=== PATIENT | male | born 1955 | race Caucasian/White ===

== ENCOUNTER 2023-05-13 19:35 | Inpatient (IN) | payer MEDICARE, SELFPAY ==
[2023-05-13 19:51] VITALS: BP 115/66; PULSE 92; RESP 18; TEMP 36.6; O2SAT 96; BMI 38.0
[2023-05-13 20:35] LABS: MANUAL DIFF FLAG NO
[2023-05-13 20:38] LABS: Basophils Absolute Auto 0.1 X10*3/uL (0.0-0.2); Basophils Percent Auto 0.8 % (0-2); Eosinophils Absolute Auto 0.1 X10*3/uL (0.0-0.4); Eosinophils Percent Auto 2.3 % (0-4); Hematocrit 41.1 % (42.0-52.0); Hemoglobin 13.7 g/dl (14.0-18.0); Imm Gran Abs Auto 0.02 X10*3/uL (0.00-0.03); Imm Gran Pct Auto 0.3 % (0.0-0.4); Lymphocytes Absolute Auto 1.4 X10*3/uL (1.2-4.9); Mean Corpuscular HGB Conc 33.3 g/dl (31.0-36.0); Mean Corpuscular Hemoglobin 29.5 pg (27.0-33.0); Mean Corpuscular Volume 88.6 fL (80.0-98.0); Mean Platelet Volume 9.1 fL (9.4-12.4); Monocytes Absolute Auto 0.8 X10*3/uL (0.1-1.2); Monocytes Percent Auto 12.2 % (2-11); Neutrophils Absolute Auto 3.8 x10*3/uL (2.0-8.3); Neutrophils Percent Auto 62.4 % (45-73); Platelet Count 241 X10*3/uL (160-400); Red Blood Count 4.64 X10*6/uL (4.60-5.80); Red Cell Distribution Width 12.2 % (11.0-16.0); White Blood Count 6.2 X10*3/uL (4.8-10.8)
[2023-05-13 20:46] LABS: Prothrombin Time 12.6 SEC (11.1-13.3)
[2023-05-13 20:54] LABS: Alanine Aminotransferase 28 U/L (0-40); Albumin Level 4.3 g/dL (3.5-5.0); Alkaline Phosphatase 70 U/L (39-117); Anion Gap 13 (12-20); Aspartate Amino Transferase 26 U/L (5-37); Bilirubin Direct 0.3 mg/dL (0.0-0.5); Bilirubin Total 0.8 mg/dL (0.0-1.0); Blood Urea Nitrogen 18 mg/dL (9-16); Calcium 9.6 mg/dL (8.4-10.2); Carbon Dioxide 31 mmol/L (22-29); Chloride 100 mmol/L (96-108); Creatinine Clr Calc Pharmacy 107.3; Estimated Glomerular Filt Rate > 60; Glucose Random 124 mg/dL (60-115); Lipase 22 U/L (8-78); Potassium 4.1 mmol/L (3.3-5.1); Sodium 140 mmol/L (135-145); Total Protein 6.7 g/dL (6.5-8.0)
[2023-05-13 22:15] VITALS: BP 121/77; PULSE 84; RESP 16; TEMP 36.6; O2SAT 98
--- NOTE | 2023-05-13 23:12 | MHC.EDTECH ---
Patient 2nd sets of blood culture ,drawn and sent to lab .
[2023-05-13 23:14] VITALS: BP 142/76; PULSE 86; RESP 16; TEMP 37; O2SAT 98
--- NOTE | 2023-05-13 23:23 | ED.GENADULT ---
HPI - General Adult General Chief complaint: Extremity Injury, Lower Stated complaint: lower leg pain inj Time Seen by Provider: 05/13/23 23:02 Source: patient Mode of arrival: ambulatory History of Present Illness HPI narrative: Pt is a 67yo male who presents to the ED with a cc of left leg swelling. Pt states he slipped getting out of a hot tub on 05/02 in [place] and landed on his knee. He developed swelling and a rug burn abrasion on the medial aspect of the patella. Pt went to the ED the next day and they ruled out any broken bones or dislocations with XR. Pt was using ibuprofen to manage the pain until he noticed the swelling, pain, and reddness spread distally to the foot. He went to the ED a second time last Sunday and they performed an US to assess for DVT. They found no evidence of DVT and the pt was discharged with Keflex. Despite taking the Keflex as prescribed, the pt notes minimal to no improvement. He flew back to [place] yesterday night and presented to the ED today. Pt denies any fever, chills, n/v, SOB, or cp. Related Data Home Medications Medication Instructions Recorded Confirmed No Known Home Meds 05/13/23 05/13/23 Allergies Allergy/AdvReac Type Severity Reaction Status Date / Time No Known Allergies Allergy Verified 05/13/23 20:02 Review of Systems Constitutional: Constitutional: Denies chills, Denies fever(s), Denies headache(s) and Denies weakness ENT: Denies dizziness and Denies headache(s) Cardiovascular: Cardiovascular: Denies chest pain, Reports leg edema (left calf, knee, and ankle) and Denies dyspnea Respiratory: Respiratory: Denies cough and Denies dyspnea Gastrointestinal: Gastrointestinal: Denies abdominal pain, Denies constipation, Denies diarrhea, Denies nausea and Denies vomiting Musculoskeletal: Musculoskeletal: Reports deformity (pressure like pain, erythema, and swelling of LLE) Integumentary/Breasts: Skin/Breast: Reports wounds (scabbed abrasion to medial left patella) Neurologic: Denies dizziness, Denies headache(s) and Denies weakness [facility] Social History Alcohol intake: never Smoked in Last 30 Days: No Use of substances other than those prescribed or required for medical reasons: No Advance Directives: Yes Advance Directives Information Provided: No Advance Directives on File: No Physical Exam ED Vital Signs: Vital Signs - 24 hr 05/13/23 19:51 05/13/23 22:15 05/13/23 23:14 Temperature 98 F 97.9 F 98.6 F Pulse Rate 92 84 86 Respiratory Rate 18 16 16 Blood Pressure 115/66 121/77 142/76 H Pulse Oximetry 96 98 98 Oxygen Delivery Method Room Air Room Air Room Air BMI result Body Mass Index 38.0 Const General: cooperative, comfortable, no acute distress, alert and awake Orientation/consciousness: patient oriented x3 HENMT Head: Yes normocephalic and Yes atraumatic Ears: hearing grossly normal bilaterally General nose exam: Normal external nose present Eyes General: appearance normal, both eyes and all related structures Eyelids: Yes eyelids normal Pupils: Equal, round and reactive pupils present Resp Effort & Inspection: normal respiratory effort and able to speak in complete sentences Auscultation: clear to auscultation bilaterally Cardio Rate: regular rate Rhythm: regular rhythm Heart sounds: S1 normal heart sound present and S2 normal heart sound present GI Inspection: Yes normal to inspection Palpation (GI): nontender Skin Other: Neuro General: patient oriented x3 Cranial nerves: Yes Equal, round and reactive pupils present Extrem General: Yes full ROM Right lower extremity: normal to inspection Left lower extremity: full ROM, edema Details: pitting and 3+, knee Details: swelling and abrasion (scabbed), lower leg Details: erythema Location: of the mid lower leg and of the distal lower leg, tenderness, localized swelling and pitting edema Details: 3+ and ankle Details: abnormal to inspection, tenderness, swelling, pitting edema Details: pitting and 3+, normal ROM and warmth Knee images: 1. scabbed abrasion Ankle/foot/toe images: 1. erythematous, swollen, indurated, warm to touch Medical Decision Making Medical Decision Making MDM Narrative: 67-year-old male presents for evaluation of redness, swelling and pain to the left lower extremity. He had ruled out for DVT, fracture. He has been on cephalexin for 5 days not and failed outpatient antibiotics. We will treat with vancomycin and Zosyn to cover both MRSA and Pseudomonas as he was in a hot tub when the injury happened. Will discuss with the hospitalist for admission for IV treatment of cellulitis due to failed outpatient antibiotics. He has full range of motion with flexion of the knee and ankle, there is very low suspicion for septic joint. Differential Diagnosis Differential Diagnoses: The differential diagnosis associated with the presentation includes (antibiotic failure, cellulitis, DVT, abscess, compartment syndrome) Admission/Observation Consideration of admission/observation: Escalation of care including admission/observation considered Lab Data MDM Lab Attestation statement: I reviewed the patient's lab results. No leukocytosis, very mild anemia. Patient's sodium potassium within normal limits, chloride of the normal limits, CO2 is just above normal at 31 which may be related to sleep apnea, BUN is just above normal 18 with normal creatinine of 1.0. 05/13/23 20:25 05/13/23 20:25 Labs: Lab Results 05/13/23 Range/Units 20:25 WBC 6.2 (4.8-10.8) X10*3/uL RBC 4.64 (4.60-5.80) X10*6/uL Hgb 13.7 L (14.0-18.0) g/dl Hct 41.1 L (42.0-52.0) % MCV 88.6 (80.0-98.0) fL MCH 29.5 (27.0-33.0) pg MCHC 33.3 (31.0-36.0) g/dl RDW 12.2 (11.0-16.0) % Plt Count 241 (160-400) X10*3/uL MPV 9.1 L (9.4-12.4) fL Immature Gran % (Auto) 0.3 (0.0-0.4) % Neut % (Auto) 62.4 (45-73) % Lymph % (Auto) 22.0 (20-40) % Shannon % (Auto) 12.2 H (2-11) % Eos % (Auto) 2.3 (0-4) % Baso % (Auto) 0.8 (0-2) % Lymph # (Auto) 1.4 (1.2-4.9) X10*3/uL Shannon # (Auto) 0.8 (0.1-1.2) X10*3/uL Eos # (Auto) 0.1 (0.0-0.4) X10*3/uL Baso # (Auto) 0.1 (0.0-0.2) X10*3/uL Abs Immat Gran (auto) 0.02 (0.00-0.03) X10*3/uL Absolute Neuts (auto) 3.8 (2.0-8.3) x10*3/uL Absolute Nucleated RBC 0.000 (0.0-0.012) X10*3/uL Nucleated RBC % (auto) 0.0 (0.0-0.2) /100WBC PT 12.6 (11.1-13.3) SEC INR 1.0 (0.9-1.1) Sodium 140 (135-145) mmol/L Potassium 4.1 (3.3-5.1) mmol/L Chloride 100 (96-108) mmol/L Carbon Dioxide 31 H (22-29) mmol/L Anion Gap 13 (12-20) BUN 18 H (9-16) mg/dL Creatinine 1.00 (0.5-1.4) mg/dL Estim Creat Clear Calc 107.3 Estimated GFR > 60 Random Glucose 124 H (60-115) mg/dL Calcium 9.6 (8.4-10.2) mg/dL Total Bilirubin 0.8 (0.0-1.0) mg/dL Direct Bilirubin 0.3 (0.0-0.5) mg/dL AST 26 (5-37) U/L ALT 28 (0-40) U/L Alkaline Phosphatase 70 (39-117) U/L Total Protein 6.7 (6.5-8.0) g/dL Albumin 4.3 (3.5-5.0) g/dL Lipase 22 (8-78) U/L Discharge Plan Discharge Clinical Impression: Cellulitis of left leg Patient Disposition: Admitted As Inpatient
[2023-05-13] MEDS: Piperacillin Sodium/Tazobactam 3.375 GM in 0.9 % Sodium Chloride 50 ML IV (23:57)
[2023-05-14] VITALS: BP 109/55; PULSE 77; RESP 16; TEMP 36.7; O2SAT 98
[2023-05-14] MEDS: 0.9 % Sodium Chloride 1,000 ML 999 ML IV
[2023-05-14] MEDS: vancomycin/NS 2,000 MG/500 ML PLAST..BAG 250 MG IV (00:31)
--- NOTE | 2023-05-14 00:32 | MHC.EDTECH ---
0000 rounding done ,vitals taken ,repeated lactic acid drawn and sent to lab , ,And Patient belongings list done ,Pt has some crackers and water for snack .
--- NOTE | 2023-05-14 01:45 | P.HPHOSP_ITS ---
History of Present Illness Date of Service: 05/14/23 Chief Complaint: Cellulitis This is a 67-year-old male who is otherwise healthy and does not take any medications for any medical problems comes into the hospital after fall on the 02 of May at a hotel cost him to scraped his knee and have severe pain, he was seen in an urgent care and was given ibuprofen, but returned on the with worsening swelling and redness, he was given antibiotics and said that he took antibiotics for 4 days but his leg continued to swell, become very painful, and have increasing redness that is now moving down his leg to his patino and ankles. He reports that he also had a DVT study on the which was negative Patient reports no fever, no chills, no abdominal pain nausea or vomiting, no diarrhea constipation, no urinary symptoms and no lower extremity edema On arrival to the ED patient hemodynamically stable Labs are significant for WBC count of 6.2, labs otherwise unremarkable Patient started on IV antibiotics and will be admitted for further management Review of Systems 2 Review of Systems: Yes all other systems are reviewed and are negative [facility] Medical History No pertinent past medical history Surgical History No pertinent past surgical history Alcohol intake: never Patient Tobacco Use Status: Never used Tobacco Smoked in Last 30 Days: No Use of substances other than those prescribed or required for medical reasons: No Advance Directives: Yes Advance Directives Information Provided: No Advance Directives on File: No Advance Directives Date on File: 05/14/23 Do you have thoughts of harming others: None Do you have a plan to hurt others: No Plan Recently lost weight without trying: No Nutrition Risks: No Nutritional Risk Meds Allergies Allergy/AdvReac Type Severity Reaction Status Date / Time No Known Allergies Allergy Verified 05/13/23 20:02 Active Medications: Current Medications Vancomycin HCl (Vancomycin/Ns) 2,000 mg in 500 mls @ 250 mls/hr IV ONCE ONE Stop: 05/14/23 02:04 Last Admin: 05/14/23 00:31 Dose: 250 mls/hr Pharmacy Consult (Consult Rx Vancomycin Dosing) 1 each MISCELLANE DAILY PRN PRN Reason: Consult order Home Medications Medication Instructions Recorded Confirmed Last Taken Type No Known Home Meds 05/13/23 05/13/23 Unknown History Physical Exam 2 Vital Signs and Narrative: Vital Signs: Last Vital Signs Temp 98.1 F 05/14/23 00:00 Pulse 77 05/14/23 00:00 Resp 16 05/14/23 00:00 BP 109/55 L 05/14/23 00:00 Pulse Ox 98 05/14/23 00:00 O2 Del Method Room Air 05/14/23 00:00 BMI result Body Mass Index 38.0 Const: General: cooperative and no acute distress O rientation/consciousness: patient oriented x3 Eyes: General: appearance normal, both eyes and all related structures P upils: Equal, round and reactive pupils present Resp: Effort & Inspection: normal respiratory effort Auscultation: clear to auscultation bilaterally Cardio: Rate: regular rate Rhythm: regular rhythm GI: Palpation (GI): Soft to palpation Auscultation: normal bowel sounds Skin: Other: Left lower extremity from knee down has 1 ulcer, significant erythema, warmth, redness, no drainage. Tender to touch Neuro: General: patient oriented x3 Cranial nerves: Yes Equal, round and reactive pupils present Cognition (Neuro): normal cognition Results Labs 05/13/23 20:25 05/13/23 20:25 Labs: Laboratory Results - last 24 hr 05/13/23 05/14/23 20:25 00:19 MCV 88.6 MCH 29.5 MCHC 33.3 RDW 12.2 Plt Count 241 MPV 9.1 L Immature Gran % (Auto) 0.3 Neut % (Auto) 62.4 Lymph % (Auto) 22.0 Hamlin % (Auto) 12.2 H Eos % (Auto) 2.3 Baso % (Auto) 0.8 Lymph # (Auto) 1.4 [place]lin # (Auto) 0.8 Eos # (Auto) 0.1 Baso # (Auto) 0.1 Abs Immat Gran (auto) 0.02 Absolute Neuts (auto) 3.8 Absolute Nucleated RBC 0.000 Nucleated RBC % (auto) 0.0 PT 12.6 INR 1.0 Anion Gap 13 Estim Creat Clear Calc 107.3 Estimated GFR > 60 Random Glucose 124 H Lactic Acid 1.0 Calcium 9.6 Total Bilirubin 0.8 Direct Bilirubin 0.3 AST 26 ALT 28 Alkaline Phosphatase 70 Total Protein 6.7 Albumin 4.3 Lipase 22 Assessment and Plan (1) Cellulitis of left leg: Status: Acute Plan 67-year-old male with no significant past medical history comes into the hospital with cellulitis of left lower extremity # left lower extremity cellulitis - failed outpatient therapy on Keflex - patient has worsening erythema, warmth, edema tenderness - no leukocytosis, afebrile - given failed outpatient therapy with p.o. antibiotics, patient will be started on IV antibiotics - follow cultures DVT prophylaxis: Lovenox Given patient's need for IV antibiotics as he failed outpatient therapy patient require minimum 2 nights inpatient hospital stay for further management and monitoring Quality Stroke Does the patient have a stroke diagnosis?: No VTE Prior VTE?: No VTE Risk Level:: Medical - moderate - high VTE Device Contraindication: Treatment Not Indicated VTE Drug Contraindication: N/A - Med Ordered
--- NOTE | 2023-05-14 02:00 | PC.NURSE ---
Pt A&Ox4, reports increasing pain with movement/pressure to LLL after falling at hotel on 05/02 in [place]. Bruising noted to back of left upper leg, Pt states that is probably from my leg brace I was wearing . Left foot swelling noted, and chin noted to be discolored, red and warm to touch. IV line place. Pt ambulated independently to with steady gait.
[2023-05-14 02:17] VITALS: BP 112/41; PULSE 82; RESP 16; TEMP 36.7; O2SAT 98
--- NOTE | 2023-05-14 02:24 | PC.NURSE ---
Report given to Cailin, Pt will be transported to room 361 by filling technician. Pt aware of plan.
[2023-05-14 02:51] VITALS: BMI 37.8
[2023-05-14 02:53] VITALS: BP 128/82; PULSE 84; RESP 18; TEMP 36.6; O2SAT 97
[2023-05-14] MEDS: ceFAZolin Sodium/Dextrose,Iso 2 GM/50 ML PIGGYBACK IV ×3 (03:27→22:11)
[2023-05-14 06:05] LABS: MANUAL DIFF FLAG NO
[2023-05-14 06:25] LABS: Anion Gap 12 (12-20); Blood Urea Nitrogen 17 mg/dL (9-16); Calcium 8.9 mg/dL (8.4-10.2); Carbon Dioxide 25 mmol/L (22-29); Chloride 106 mmol/L (96-108); Creatinine Clr Calc Pharmacy 118.8; Estimated Glomerular Filt Rate > 60; Glucose Random 109 mg/dL (60-115); Sodium 139 mmol/L (135-145)
[2023-05-14 06:27] LABS: Basophils Percent Auto 0.7 % (0-2); Eosinophils Absolute Auto 0.2 X10*3/uL (0.0-0.4); Eosinophils Percent Auto 2.9 % (0-4); Imm Gran Abs Auto 0.03 X10*3/uL (0.00-0.03); Imm Gran Pct Auto 0.5 % (0.0-0.4); Lymphocytes Absolute Auto 1.7 X10*3/uL (1.2-4.9); Lymphocytes Percent Auto 27.4 % (20-40); Mean Corpuscular HGB Conc 33.3 g/dl (31.0-36.0); Mean Corpuscular Hemoglobin 29.6 pg (27.0-33.0); Mean Corpuscular Volume 88.8 fL (80.0-98.0); Mean Platelet Volume 9.3 fL (9.4-12.4); Monocytes Absolute Auto 0.9 X10*3/uL (0.1-1.2); Monocytes Percent Auto 15.2 % (2-11); Neutrophils Absolute Auto 3.3 x10*3/uL (2.0-8.3); Neutrophils Percent Auto 53.3 % (45-73); Platelet Count 224 X10*3/uL (160-400); Red Blood Count 4.39 X10*6/uL (4.60-5.80); Red Cell Distribution Width 12.3 % (11.0-16.0); White Blood Count 6.1 X10*3/uL (4.8-10.8)
--- NOTE | 2023-05-14 07:09 | PHA.PROG ---
Admission Date/Time: May 14, 2023 01:44 Indication: Skin Weight in k.5 kg Adjusted body weight in Kg: [place] body weight in Kg: Obesity Dosing Indication % IBW: 62% over IBW Serum Creatinine - Last 168 Hours 05/13/23 05/14/23 20:25 05:57 Creatinine 1.00 0.90 Estimated CrCl and GFR - Last 168 Hours 05/13/23 05/14/23 20:25 05:57 Estim Creat Clear Calc 107.3 118.8 Estimated GFR > 60 > 60 Vancomycin Loading Dose: 2000mg x 1 Current Vancomycin Dosing Regimen: 1000mg Q12H Vancomycin Monitoring using AUC goal of 400 - 600 range with trough as surrogate marker: 452 mg/L Date and Time for next Vancomycin Level to be drawn: 05/15/23 @0900 Pharmacist Comments on Vancomycin Plan: Obese model used; predicted trough of 12.5 mg/L. Will continue to monitor and adjust accordingly. Vancomycin dosing will take advantage of [employer] as a clinical decision support tool that uses Bayesian modeling to calculate individual patient's pharmacokinetic parameters and forecast the patient's drug concentration time course with the target goal AUC 24 range of 400 - 600 mg/L/hr.
[2023-05-14 07:14] VITALS: BP 137/78; PULSE 77; RESP 18; TEMP 36.5; O2SAT 97
--- NOTE | 2023-05-14 07:26 | PHA.MEDREC ---
Pharmacy Consult ? Medication Reconciliation Pharmacy has REVIEWED the medication reconciliation. RN overnight put no known medications, this matches claim history except for a recent fill of cephalexin. Picked up 11.25 for a 10 day supply.
[2023-05-14] MEDS: Enoxaparin Sodium 40 MG/0.4 ML SYRINGE SUBCUT (07:56)
[2023-05-14] MEDS: 0.9 % Sodium Chloride Flush 3 ML SYRINGE IVFLUSH ×2 (07:57→15:01)
[2023-05-14] MEDS: Acetaminophen 325 MG TABLET 650 MG PO (07:58)
--- NOTE | 2023-05-14 08:58 | HO.PM.IMPN ---
Subjective Subjective Date of Service: 05/14/23 Review of Systems Follow up cellulitis no pain, nausea or vomiting no difficulty with ambulation Physical Exam Vital Signs: Vital Signs: Last Vital Signs Temp 97.7 F 05/14/23 07:14 Pulse 77 05/14/23 07:14 Resp 18 05/14/23 07:14 BP 137/78 05/14/23 07:14 Pulse Ox 97 05/14/23 07:14 O2 Del Method Room Air 05/14/23 07:14 BMI result Body Mass Index 37.8 Appearing in no acute distress lung sounds are clear to auscultation heart regular rate rhythm, clear S1, S2 positive bowel sounds, abdomen is soft, nontender neuro patient is alert x3, no focal deficits erythema and edema to LLE, no open or ozzing areas Objective Data Active Medications Acetaminophen (Acetaminophen 325 Mg Tablet) 650 mg PO Q6H PRN PRN Reason: Pain, Mild (Pain Scale 1-3) Last Admin: 05/14/23 07:58 Dose: 650 mg Documented By: KRIS Docusate Sodium (Docusate Sodium 100 Mg Capsule) 100 mg PO DAILY PRN PRN Reason: Constipation Enoxaparin Sodium (Enoxaparin Sodium 40 Mg/0.4 Ml Syringe) 40 mg SUBCUT Q24H [facility] Last Admin: 05/14/23 07:56 Dose: 40 mg Documented By: KRIS Cefazolin Sodium/Dextrose (Ancef) 2 gm in 50 mls @ 100 mls/hr IV Q8H [facility] Vancomycin HCl 1,000 mg/ (Sodium Chloride) 270 mls @ 270 mls/hr IV Q12H [facility] Ondansetron HCl (Ondansetron Hcl 4 Mg/2 Ml Vial) 4 mg IVPUSH Q8H PRN PRN Reason: Nausea and Vomiting Pharmacy Consult (Consult Rx Vancomycin Dosing) 1 each MISCELLANE DAILY PRN PRN Reason: Consult order Sodium Chloride (0.9 % Sodium Chloride Flush 3 Ml Syringe) 3 ml IVFLUSH QSHIFT [facility] Last Admin: 05/14/23 07:57 Dose: 3 ml Documented By: KRIS Labs 05/14/23 05:57 05/14/23 05:57 Labs: Laboratory Results - last 24 hr 11/26/23 11/27/23 11/27/23 20:25 00:19 05:57 MCV 88.6 88.8 MCH 29.5 29.6 MCHC 33.3 33.3 RDW 12.2 12.3 Plt Count 241 224 MPV 9.1 L 9.3 L Immature Gran % (Auto) 0.3 0.5 H Neut % (Auto) 62.4 53.3 Lymph % (Auto) 22.0 27.4 Baldwin % (Auto) 12.2 H 15.2 H Eos % (Auto) 2.3 2.9 Baso % (Auto) 0.8 0.7 Lymph # (Auto) 1.4 1.7 Baldwin # (Auto) 0.8 0.9 Eos # (Auto) 0.1 0.2 Baso # (Auto) 0.1 0.0 Abs Immat Gran (auto) 0.02 0.03 Absolute Neuts (auto) 3.8 3.3 Absolute Nucleated RBC 0.000 0.000 Nucleated RBC % (auto) 0.0 0.0 PT 12.6 INR 1.0 Anion Gap 13 12 Estim Creat Clear Calc 107.3 118.8 Estimated GFR > 60 > 60 Random Glucose 124 H 109 Lactic Acid 1.0 Calcium 9.6 8.9 D Total Bilirubin 0.8 Direct Bilirubin 0.3 AST 26 ALT 28 Alkaline Phosphatase 70 Total Protein 6.7 Albumin 4.3 Lipase 22 Assessment and Plan (1) Cellulitis of left leg: Status: Acute Plan 67-year-old male with no significant past medical history comes into the hospital with cellulitis of left lower extremity Left lower extremity cellulitis failed outpatient therapy on Keflex patient has worsening erythema, warmth, edema tenderness no leukocytosis, afebrile given failed outpatient therapy with p.o. antibiotics, patient will be started on IV antibiotics, Vancomycin and Kefzol follow cultures Normocytic anemia, no blood loss, unspecified monitor cbc DVT prophylaxis: Lovenox Attending Dr. Walker Full code Given patient's need for IV antibiotics as he failed outpatient therapy patient require minimum 2 nights inpatient hospital stay for further management and monitoring Quality Stroke Does the patient have a stroke diagnosis?: No VTE Prior VTE?: No VTE Risk Level:: Medical - moderate - high VTE Device Contraindication: Treatment Not Indicated VTE Drug Contraindication: N/A - Med Ordered
--- NOTE | 2023-05-14 09:16 | MHC.CM.PN ---
IMM DELIVERED PT LIVES ALONE, INDEPENDENT AND SELF EMPLOYED. 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 USES A CPAP AT NIGHT. +COVID [facility] +HCP (PT HAS COPY AT HOME) PCP SASCHA EDUARDO. DP: HOME, NO SERVICES ANTICIPATED. PT HAS CAR IN LOT. CM WILL CONTINUE TO FOLLOW FOR ANY CHANGE IN DC PLAN/NEEDS.
[2023-05-14] MEDS: vancomycin HCL 1,000 MG in 0.9 % Sodium Chloride 250 ML 270 MG IV ×2 (11:38→22:44)
[2023-05-14] MEDS: oxyCODONE HCl Immed Release 5 MG TABLET PO (11:49)
[2023-05-14 15:43] VITALS: BP 123/69; PULSE 73; RESP 18; TEMP 36.4; O2SAT 96
[2023-05-14 20:00] VITALS: BP 147/72; PULSE 76; RESP 16; TEMP 36.3; O2SAT 95
[2023-05-15 03:40] VITALS: BP 136/76; PULSE 79; RESP 16; TEMP 36.3; O2SAT 96
[2023-05-15] MEDS: ceFAZolin Sodium/Dextrose,Iso 2 GM/50 ML PIGGYBACK IV (05:46)
[2023-05-15] MEDS: Acetaminophen 325 MG TABLET 650 MG PO (06:06)
[2023-05-15 06:44] LABS: Creatinine Clr Calc Pharmacy 127.3; Estimated Glomerular Filt Rate > 60
[2023-05-15 07:12] VITALS: BP 122/63; PULSE 74; RESP 20; TEMP 36.7; O2SAT 96
[2023-05-15] MEDS: 0.9 % Sodium Chloride Flush 3 ML SYRINGE IVFLUSH (07:37)
[2023-05-15] MEDS: Enoxaparin Sodium 40 MG/0.4 ML SYRINGE SUBCUT (07:37)
[2023-05-15 09:15] LABS: Vancomycin Trough 6.6 mcg/mL (10.0-20.0)
--- NOTE | 2023-05-15 09:18 | P.DS_ITS ---
DS: Providers Provider Date of Service: 05/15/23 Date of admission: 05/14/23 01:44 Primary care physician: Vitaly Tejeda MD DS: Diagnosis Discharge Diagnosis (1) Cellulitis of left leg: Status: Acute DS: Summary Hospital Course Hospital Course: History and physical as per admitting provider. This is a 67-year-old male who is otherwise healthy and does not take any medications for any medical problems comes into the hospital after fall on the 02 of May at a hotel cost him to scraped his knee and have severe pain, he was seen in an urgent care and was given ibuprofen, but returned on the with worsening swelling and redness, he was given antibiotics and said that he took antibiotics for 4 days but his leg continued to swell, become very painful, and have increasing redness that is now moving down his leg to his patino and ankles. He reports that he also had a DVT study on the which was negative. Patient reports no fever, no chills, no abdominal pain nausea or vomiting, no diarrhea constipation, no urinary symptoms and no lower extremity edema. On arrival to the ED patient hemodynamically stable. Labs are significant for WBC count of 6.2, labs otherwise unremarkable. Patient started on IV antibiotics and will be admitted for further management 67-year-old man treated for left lower extremity cellulitis likely secondary to scratch injuries. Treated with IV vancomycin and Kefzol while inpatient with significant improvement in erythema and edema as well as pain. Blood cultures have remained negative the patient has not had fever leukocytosis. He is out of bed ambulating. Plan will be to complete a total of 10 days of antibiotics, home with Augmentin and doxycycline. He can follow-up with primary care provider as needed. Time Attestation Discharge coordination time: Greater than 30 minutes Quality: Safe Use of Opioids Does Pt have an Active Cancer Diagnosis on the Problem List?: No Quality: Stroke Does the patient have a stroke diagnosis?: No Physical Exam 2 Vital Signs: Vital Signs: Last Vital Signs Temp 98.0 F 05/15/23 07:12 Pulse 74 05/15/23 07:12 Resp 20 05/15/23 07:12 BP 122/63 05/15/23 07:12 Pulse Ox 96 05/15/23 07:12 O2 Del Method Room Air 05/15/23 07:12 BMI result Body Mass Index 37.8 Appearing in no acute distress head is normocephalic atraumatic eyes pupils are PERRLA sclera is anicteric mouth throat mucous membranes are intact and moist neck is supple no lymphadenopathy, no JVD noted lung sounds are clear to auscultation heart regular rate rhythm, clear S1, S2 positive bowel sounds, abdomen is soft, nontender neuro patient is alert x3, no focal deficits 05/14/23 05/15/23 DS: Data Data Completed and Pending Labs on day of discharge: Laboratory Results - last 24 hr 05/15/23 05/15/23 05:35 08:19 Hold Purple Top SEE NOTE Creatinine 0.84 Estim Creat Clear Calc 127.3 Estimated GFR > 60 Vancomycin Trough 6.6 L Preliminary micro results at discharge 05/13/23 23:10 Blood Culture - Preliminary Blood - Venous No growth after 24 hours. 05/13/23 20:25 Blood Culture - Preliminary Blood - Venous No growth after 24 hours. Discharge Plan Discharge Anticipated Discharge Date/Time: 05/15/23 09:15 Patient Disposition: Home, Self-Care Discharge Diagnosis: Lower extremity cellulitis Referrals: Vitaly Tejeda MD [Primary Care Provider] - 1 Week Discharge Medications: New amoxicillin-pot clavulanate 875-125 mg tablet 1 tab PO BID Qty: 16 0RF doxycycline hyclate 100 mg tablet 100 mg PO BID Qty: 16 0RF Discontinued cephalexin 500 mg capsule 500 mg PO QID Discharge Orders: Discharge Order (Routine); Ordered 05/15/23 Ordered By: Atiya Castillo Diet: Advance to usual diet Activity on Discharge: As tolerated Stand Alone Forms: Patient Portal Discharge page, Work/School Release Care Plan Goals: You have been prescribed 2 antibiotics for cellulitis of the left lower extremity: Augmentin twice daily for 8 days Doxycycline twice daily for 8 days Health Concerns: Cellulitis of lower extremity Plan of Treatment: Follow-up with primary care provider as needed Take all medications as prescribed Assessment: See discharge summary
--- NOTE | 2023-05-15 09:24 | MHC.CM.PN ---
DP: PT HAS BEEN MEDICALLY CLEARED FOR DC HOME WITH NO SERVICES. PT HAS CAR IN LOT.
--- NOTE | 2023-05-15 09:40 | HE.PHANOTE ---
re: ysabel PATIENTS LEVEL CAME BACK THIS MORNING AT 6.6. PATIENTS INDICATION IS SKIN WILL INCREASE DOSE TO 1500 MG Q12H. WILL GET LEVEL AFTER TWO DOSES TO ENSURE SAFETY AND EFFICACY
[2023-05-15] MEDS: vancomycin HCL 1,500 MG in 0.9 % Sodium Chloride 500 ML 333.33 MG IV (10:55)
== END 2023-05-15 13:24 | disposition home or self-care (01) | DRG 603 ==
LOC: HO.ED 23:44 → HO.EDOVER 05-14 01:48 → HO.S3 05-14 02:07
PROVIDERS: Physician Assistant; Admitting Provider Internal Medicine; Emergency Provider Internal Medicine; PCP Internal Medicine; Visit Provider Nurse Practitioner Acute Care
DX: L03.116 Cellulitis of left lower limb (principal); D64.9 Anemia, unspecified
CPT/HCPCS: 36415; 80048; 80076; 80202; 82565; 83605; 83690; 85025; 85610; 87040; 99221; 99285; J0690; J1650; J2543; J3370; J3371

== ENCOUNTER → 2023-05-14 01:44 | Outpatient (BNV) | payer MEDICARE, SELFPAY | PROVIDERS: Admitting Provider Internal Medicine; Emergency Provider Internal Medicine; PCP Internal Medicine; Visit Provider Internal Medicine | DX: L03.116 Cellulitis of left lower limb (principal) | CPT/HCPCS: 99223; 99239; 99499 ==